=== PATIENT | female | born 1980 | race Caucasian/White ===

== ENCOUNTER 2017-09-23 09:54 | Inpatient (IN) | payer OTHER ==
[2017-09-23] MEDS ORDERED: Misoprostol 400 MCG (4 X 100 MCG TAB) RECTAL PRN (10:00)
[2017-09-23] MEDS ORDERED: Ondansetron 4 MG/2 ML SDV IV PRN (10:00)
[2017-09-23] MEDS ORDERED: Oxytocin/Normal Saline 30 UNIT/500 ML BAG IV SCH (10:00)
[2017-09-23] MEDS ORDERED: ePHEDrine 50 MG/ML SDV IVPUSH PRN (10:00)
[2017-09-23] MEDS ORDERED: Citric Acid/Sodium Citrate Solution 30 ML Cup PO ONE (10:00)
[2017-09-23] MEDS ORDERED: Naloxone 2 MG/2 ML Syringe IVPUSH PRN (10:00)
[2017-09-23] MEDS ORDERED: Carboprost Tromethamine 250 MCG/1 ML Amp IM ONE (10:00)
[2017-09-23] MEDS ORDERED: diphenhydrAMINE 50 MG/ML SDV IVPUSH PRN (10:00)
[2017-09-23] MEDS ORDERED: Acetaminophen 325 MG Tab PO PRN (10:00)
[2017-09-23] MEDS ORDERED: Methylergonovine 0.2 MG/1 ML Amp IM PRN (10:00)
[2017-09-23] MEDS: Lactated Ringers 1,000 ML IV SCH ×3 (10:25→20:05)
[2017-09-23] MEDS ORDERED: Oxytocin/Normal Saline 60 UNIT/1,000 ML BAG ONE (13:17)
--- NOTE | 2017-09-23 14:42 | OBOUT ---
DATE: 09/23/2017 DATE AND TIME OF NST: Date: 09/23/2017. Time: 10:40 a.m. to 11:00 a.m. REASON FOR NST: 1. Intrauterine at 39 and 1/7 weeks, confirmed with 20 and 1/7 week ultrasound. 2. 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 3. Request repeat low transverse after discussion with the herpes outbreak as above, which is indicated. 4. Group B streptococcus negative. 5. Intrauterine insemination . 6. Advanced maternal age. 7. G3, P1-0-1-1. NST INTERPRETATION: During this time period, heart tone baseline is approximately 155 to 160, and there are at least two 15 x 15 beats per minute accelerations, making this strip reactive. It is also noted to be reassuring. Tocometer reveals potential of 12 to 13 contractions versus irritability, not felt by patient. ASSESSMENT: 1. Nonstress test, reactive and reassuring. 2. Tocometer with contractions, not felt by patient. PLAN: Please see admit history and physical which was done and will be scanned in through [facility]. For Records were called for, reviewed, and supplemented by patient history. Review of systems was otherwise felt to be noncontributory. Vital signs have been updated and listed in the chart as well. We will proceed to the OR as soon as crew is ready and available. [facility] /[id number]
[2017-09-23] MEDS: Prenatal Multivitamin with Calcium/Folic Acid/Iron Tab PO SCH (16:37)
[2017-09-23] MEDS: Ferrous Sulfate 325 MG Tab PO SCH (16:37)
[2017-09-23] MEDS ORDERED: Promethazine 25 MG/ML SDV IM ONE (16:49)
[2017-09-23] MEDS: Ketorolac 30 MG/ML SDV IVPUSH SCH (20:04)
[2017-09-23] MEDS: Simethicone 80 MG Tab.Chew PO SCH (21:25)
[2017-09-24] MEDS: Ketorolac 30 MG/ML SDV IVPUSH SCH ×2 (02:29→08:01)
[2017-09-24] MEDS: Lactated Ringers 1,000 ML IV SCH (04:09)
[2017-09-24] MEDS: Prenatal Multivitamin with Calcium/Folic Acid/Iron Tab PO SCH (08:03)
[2017-09-24] MEDS: Simethicone 80 MG Tab.Chew PO SCH ×4 (08:03→20:54)
[2017-09-24] MEDS: Ferrous Sulfate 325 MG Tab PO SCH (08:03)
--- NOTE | 2017-09-24 08:52 | OR ---
DATE: 09/23/2017 PREOPERATIVE DIAGNOSES: 1. Intrauterine 39 and 1/7 weeks, confirmed with 20 and 1/7 week ultrasound. 2. Genital rectal herpes outbreak on September 17, 2017, currently being treated. 3. Request primary to low transverse with indication as above. 4. Group B Streptococcus negative. 5. Intrauterine insemination . 6. Advanced maternal age. 7. G3, P1-0-1-1. POSTOPERATIVE DIAGNOSES: 1. Intrauterine 39 and 1/7 weeks, confirmed with 20 and 1/7 week ultrasound-delivered. 2. Genital rectal herpes outbreak on September 17, 2017, currently being treated. 3. Request primary to low transverse with indication as above. 4. Group B Streptococcus negative. 5. Intrauterine insemination . 6. Advanced maternal age. 7. G3, P1-0-1-1. 8. Difficulty delivering infant, requiring vacuum-assisted delivery. 9. hemorrhage with an EBL of a 1000 mL. PROCEDURE PERFORMED: NST, followed by primary low transverse with two- layer uterine closure and delivery with vacuum assistance. ANESTHESIA: Spinal. ESTIMATED BLOOD LOSS: 1000 mL. IV FLUIDS: 1600 mL of LR, 300 mL of Pitocin. URINE OUTPUT: 75 mL and clear yellow. START: 1423 hours. UTERINE INCISION: 1427 hours. DELIVERY: 1429 hours. STOP: 1454 hours. FINDINGS: Female, scores 9 and 10, weight pending. DESCRIPTION OF PROCEDURE IN DETAIL: After proper consent was obtained, the patient was brought to the operating room, where spinal anesthetic was administered. A Mitchell was placed in preop under sterile conditions. The abdomen was prepped and draped in normal sterile fashion. The patient was placed in supine position with left lateral tilt. A skin incision was then made over the lower abdomen in transverse Pfannenstiel- type fashion. This was carried down to the fascia and scored in midline. Subcutaneous tissue was raked laterally with Garcia retractor, and fascial incision was extended in transverse fashion using curved Mi's. Franki clamps x2 were used to grasp the superior aspect of fascia and rectus muscles were dissected from fascia using sharp and blunt technique. In a similar fashion, Franki clamps x2 were used to grasp the inferior portion of incision and rectus and pyramidalis muscles were dissected from fascia using sharp and blunt technique. Rectus muscles were in the midline with blunt technique Abdominal cavity was entered in blunt technique using hemostat and fingers under direct visualization. Incision was extended superiorly and inferiorly using blunt technique. Mauro O retractor was then introduced and used. Bladder flap was made digitally with Metzenbaum scissors, and curvilinear incision was made on the lower uterine segment at 1427 hours. Uterus was entered sharply. The uterine incision was then extended in a transverse fashion using blunt technique. Artificial rupture of membranes of bulging bag of water was then done bluntly. Subsequently vertex was attempted to be delivered through the incision with difficulty. Kiwi-vacuum was called for, pumped up to the green while applying to the vertex and with gentle pulling pressure and fundal pressure vertex was delivered. Vacuum was disengaged. The rest of the delivered with minimal difficulty. Mouth and nares were suctioned. Cord was doubly clamped and cut. was brought over to team. Then, approximately 10 mL of cord blood was obtained for labs. Placenta then delivered with gentle cord traction and fundal massage. Uterine cavity was cleared of all blood clots and debris with lap sponge. Rivera clamps were used to grasp the uterine incision and this was closed in a running locked fashion, tied at lateral margins with 1-0 Vicryl. Second imbricating layer was then applied and tied at lateral margins with 1-0 Vicryl. There was bleeding right at the midline requiring 1 [id number] stitch, hemostasis was reassured. First inspection of the uterine incision revealed hemostasis. Mauro O retractor was then removed and paracolic gutters were cleared of all blood clots and debris with lap sponge. Anterior cul-de-sac was then irrigated copiously and all blood clots and debris removed. Second and final inspection of the uterine incision and anterior cul-de-sac revealed hemostasis. Rectus muscles were then reapproximated in the midline with a [id number] stitch using 1-0 Vicryl. Subfascial tissue was found to be hemostatic, and fascia was closed in a running fashion, tied at lateral margin with 0 looped PDS. Subcutaneous tissue was irrigated copiously, hemostasis reassured. Skin was reapproximated with medium dot. Sterile Aquacel dressing applied. Uterine fundus was firm and massaged at the conclusion of the case around the umbilicus. No immediate complications were noted. Sponge, lap, and needle counts were correct. The patient received 3 g of Ancef preoperatively, pitocin per protocol and will receive Toradol at the conclusion of case for pain control. Mother and infant are currently stable at the time of dictation. [facility] /[id number]
[2017-09-24] MEDS ORDERED: Acyclovir 200 MG Cap PO SCH (09:00)
--- NOTE | 2017-09-24 09:40 | PN ---
DATE: 09/24/2017 SUBJECTIVE: The patient is a 37-year-old, G3, P1-0-1-1, who is postop day #1 status post primary low transverse section. She had some nausea last night that was treated with Zofran and promethazine. She vomited 3 times the last time being at 8:00 p.m.. She is tolerating her breakfast this morning. She reports mild lower abdominal pain that is well controlled on current medications. She reports mild lochia. She denies fevers, or chills, shortness of breath, or chest pain, headaches, or visual changes, or swelling or tenderness in any of her extremities. She has not had a bowel movement and is not yet passing gas. She is wondering if she should continue taking her Acyclovir as she is not longer experiencing symptoms. OBJECTIVE: Vital Signs: Temperature 97.8 degrees Fahrenheit, heart rate 88, blood pressure 97/60, respiratory rate 16. General: Alert, pleasant, well-appearing female. HEENT: Atraumatic. Anicteric sclerae. No obvious deformities to external ears. Neck: Supple without adenopathy. Heart: Regular rate and rhythm. S1 and S2. Lungs: Clear to auscultation bilaterally. Abdomen: Soft, non-distended, appropriately tender in the lower 2 quadrants. uterus firm, Aquacel dressing clean, dry, and intact. Neurologic: No obvious neurologic deficits. Extremities: No edema or erythema. Nontender to palpation. Skin: Warm and dry. ASSESSMENT: 1. Postop day #1, status post vacuum-assisted primary low transverse section. 2. Intrauterine at 39 and 1/7 weeks gestation, confirmed with a 20 and 1/7 week ultrasound, delivered. 3. Group B streptococcus negative. 4. Intrauterine insemination. 5. Advanced maternal age. 6. G3, P1-0-1-1. 7. hemorrhage. Estimated blood loss 1000 mL. 8. Herpes genital rectal outbreak, September 17, 2017. PERTINENT LABS: WBC 16.2, Hemoglobin 9.3, Platelets 275 PLAN: Continue routine care. Remove Mitchell today and increase ambulation. Please see orders for further details. Continue acyclovir until patient follows up in the clinic with Dr. Kapoor on September 28. Anticipate discharge on September 26. The patient's questions have been answered, and she is in agreement with the above plan. [facility] /[id number] CORRECTION: Patient is a [id number] after delivery. ADDITION: Will start patient on oral iron therapy for acute blood loss anemia. As patient is asymptomatic, will not repeat CBC during her hospitalization. Agree with student assessment and plan with the above corrections/additions. Patient was personally examined by me, and the above assessment and plan and per my direction. Dr. Wells will assume care of the patient over the weekend. Kiersten Hollins MD [facility] CENTERJudit
[2017-09-24] MEDS: ACYCLOVIR 400 MG PO SCH ×3 (10:00→20:54)
[2017-09-24] MEDS: Acetaminophen/oxyCODONE 325-5 MG Tab PO PRN ×3 (12:22→20:53)
[2017-09-24] MEDS: Docusate Sodium 100 MG Cap PO PRN ×2 (12:22→20:54)
[2017-09-24] MEDS ORDERED: Ondansetron 4 MG/2 ML SDV IV ONE (13:31)
[2017-09-24] MEDS ORDERED: Lactated Ringers 1,000 ML IV ONE (13:31)
[2017-09-24] MEDS ORDERED: Midazolam 1 MG/ML 2 ML SDV IV ONE (13:31)
[2017-09-24] MEDS ORDERED: Dexamethasone 4 MG/ML SDV IV ONE (13:31)
[2017-09-24] MEDS ORDERED: Ketorolac 30 MG/ML SDV IVPUSH ONE (13:31)
[2017-09-24] MEDS: Ibuprofen 800 MG Tab PO PRN (17:17)
[2017-09-25] MEDS: Ibuprofen 800 MG Tab PO PRN ×3 (01:22→17:59)
[2017-09-25] MEDS: Acetaminophen/oxyCODONE 325-5 MG Tab PO PRN ×6 (01:22→21:54)
[2017-09-25] MEDS: ACYCLOVIR 400 MG PO SCH ×3 (09:53→21:08)
[2017-09-25] MEDS: Ferrous Sulfate 325 MG Tab PO SCH (09:53)
[2017-09-25] MEDS: Docusate Sodium 100 MG Cap PO PRN ×2 (09:53→21:08)
[2017-09-25] MEDS: Prenatal Multivitamin with Calcium/Folic Acid/Iron Tab PO SCH (09:53)
[2017-09-25] MEDS: Simethicone 80 MG Tab.Chew PO SCH ×4 (09:54→21:08)
--- NOTE | 2017-09-25 13:29 | PN ---
DATE: 09/25/2017 SUBJECTIVE: The patient is a 37-year-old G3, P2, who is postoperative day #2 primary , which was done for active HSV. She is now currently on acyclovir. The patient is ambulating, voiding, tolerating p.o., good pain control. This was an DECLAN . PHYSICAL EXAMINATION: Vital Signs: The patient is afebrile. Heart rate 89 to 102, blood pressure 111 to 125/58 to 71, respiratory rate 16 to 18, O2 saturation 97 to 100. LABORATORY DATA: The patient's preoperative hemoglobin was 11.9, yesterday's postoperative hemoglobin is 9.3, consistent with some mild acute blood loss anemia; platelets are 275; white count 16.2. The patient is A positive. Rubella immune. ASSESSMENT AND PLAN: Postoperative day #2, status post primary section. Mom and baby were both doing well. We will continue postoperative care and likely discharge tomorrow. [facility] /[id number] MARK
[2017-09-26] MEDS: Acetaminophen/oxyCODONE 325-5 MG Tab PO PRN ×2 (02:28→08:48)
[2017-09-26] MEDS: Ibuprofen 800 MG Tab PO PRN (02:28)
[2017-09-26] MEDS: Prenatal Multivitamin with Calcium/Folic Acid/Iron Tab PO SCH (08:48)
[2017-09-26] MEDS: Ferrous Sulfate 325 MG Tab PO SCH (08:48)
[2017-09-26] MEDS: Docusate Sodium 100 MG Cap PO PRN (08:48)
[2017-09-26] MEDS: Simethicone 80 MG Tab.Chew PO SCH (08:49)
[2017-09-26] MEDS: ACYCLOVIR 400 MG PO SCH (08:49)
[2017-09-26] MEDS ORDERED: Oxytocin/Normal Saline 30 UNIT/500 ML BAG IV ONE (11:59)
--- NOTE | 2017-09-26 12:37 | PN ---
DATE: 09/26/2017 SUBJECTIVE: The patient is postoperative day #3, status post primary low- transverse at term with active HSV. This was an DECLAN . She is G3, P2. The patient is voiding, ambulating, tolerating p.o., good pain control, and she is ready for discharge. PHYSICAL EXAMINATION: The patient is afebrile. Heart rate 88 to 105, blood pressure 119 to 144/71 to 82, respiratory rate 16 to 18, O2 sat 96% to 99%. The patient is A positive. Rubella immune. Preoperative hemoglobin was 11.9, postoperatively it was 9.3. The patient's fundus is firm below the umbilicus. Extremities have no tenderness, no edema. Last night, her Aquacel dressing did start to come off, therefore, it was completely removed. Abdomen was examined this morning, and the abdomen is benign. Incision is clean, dry, and intact. I do not think that another dressing would be needed. ASSESSMENT AND PLAN: Postoperative day #3, status post primary low-transverse C - section. Mom and baby were both doing well. Discharge home with no heavy lifting and pelvic rest. I did give her 30 Percocet. She will continue on iron a day and she already has an appointment on Wednesday to have her dot removed. [facility] /[id number] MARK
== END 2017-09-26 12:00 | disposition home or self-care (01) | DRG 765 ==
LOC: DL.OBCHECK 09:54 → DL.OB 10:12 → EDSTATUS 12:00 → OBSVTOIN 14:29 → EDSTATUS 10-06 12:33
PROVIDERS: ADMIT Family Medicine; ATTEND Family Medicine
PROC: 10D00Z1 Extraction of Products of Conception, Low, Open Approach (ICD-10-PCS; principal; 2017-09-23)
DX: O98.32 Other infections with a predominantly sexual mode of transmission complicating childbirth (principal); O72.1 Other immediate postpartum hemorrhage; A60.1 Herpesviral infection of perianal skin and rectum; Z3A.39 39 weeks gestation of pregnancy; Z37.0 Single live birth; Z87.891 Personal history of nicotine dependence
CPT/HCPCS: 36415; 59025; 85027; 86850; 86900; 86901; A9270-GY; J0690; J1100; J1885; J2250; J2405; J2550; J2590; J7120